=== PATIENT | female | born 1990 | race African-American/Black ===

== ENCOUNTER 2022-09-15 12:11 | Emergency (ER) | payer MEDICARE ==
[~2022-09-15] VITALS: Ht 170.2 cm; Wt 120.0 kg
[2022-09-15 12:47] LABS: BASO% 0.6 % (0-3); EOS% 1.8 % (0-8); HEMATOCRIT 37.8 % (37.0-47.0); IMMATURE GRANULOCYTES 0.2 % (0.0-5.0); LYMPH% 28.1 % (15-41); MEAN CELL VOLUME 78.3 fL CALC (80.0-100.0); MEAN CORPUSCULAR HGB 24.8 pG CALC (26.0-32.0); MEAN CORPUSCULAR HGB CONC 31.7 g/dL CAL (32.0-36.0); MONO% 8.8 % (2-13); NEUT# 3.3 thou/uL (2.00-7.15); NEUT% 60.5 % (42-76); RED BLOOD COUNT 4.83 mill/uL (4.20-5.60); RED CELL DISTRI WIDTH 14.1 % (11.5-15.5)
[2022-09-15 13:05] LABS: ALBUMIN 4.3 g/dL (3.2-5.0); ALKALINE PHOSPHATASE 69 u/l (38-126); ANION GAP 8 (6-22 (CALC)); BILIRUBIN, TOTAL 0.1 mg/dL (0.02-1.3); BUN 12 mg/dL (7-17); BUN/CREATININE RATIO 14 (12-20 (CALC)); CARBON DIOXIDE 29 mmol/l (22-30); CHLORIDE 105 mmol/l (95-108); CREATININE 0.9 mg/dL (0.5-1.0); GFR FOR AFR.AMER. > 60 ML/MIN (>=60 (CALC)); GFR OTHER RACES > 60 ML/MIN (>=60 (CALC)); LIPASE 37 u/l (23-300); POTASSIUM 3.6 mmol/l (3.5-5.1); SGOT/AST 25 u/l (14-36); SODIUM 139 mmol/l (137-146); TOTAL PROTEIN 7.4 g/dL (6.3-8.2)
[2022-09-15 13:42] LABS: URINE BILIRUBIN - DIPSTICK NEGATIVE (NEGATIVE); URINE BLOOD DIPSTICK NEGATIVE (NEGATIVE); URINE COLOR YELLOW; URINE GLUCOSE - DIPSTICK NEGATIVE (NEGATIVE); URINE KETONE NEGATIVE (NEGATIVE); URINE LEUK ESTERASE NEGATIVE (NEGATIVE); URINE PROTEIN - DIPSTICK NEGATIVE (NEG-TRACE); URINE SPECIFIC GRAVITY 1.025; URINE UROBILINOGEN - DIPSTICK 0.2 E.U./dL (0.2)
[2022-09-15 13:46] LABS: URINE NITRITE - DIPSTICK NEGATIVE (Negative)
[2022-09-15] MEDS ORDERED: METRONIDAZOLE500 MG PO (14:20)
[2022-09-15] MEDS ORDERED: ISENTRESS400 MG PO (15:15)
[2022-09-15] MEDS ORDERED: COMBIVIR 1501 COMBO PO (15:15)
== END 2022-09-15 16:17 | disposition home or self-care (01) ==
LOC: ED 12:11
PROVIDERS: Family Medicine
DX: T74.21XA Adult sexual abuse, confirmed, initial encounter (principal); R10.2 Pelvic and perineal pain; E66.01 Morbid (severe) obesity due to excess calories

== ENCOUNTER 2023-02-24 14:38 | Emergency (ER) | payer MEDICARE ==
[~2023-02-24] VITALS: Ht 170.2 cm; Wt 142.0 kg
[2023-02-24] VITALS (12 sets, daily range): BP systolic 97–139; BP diastolic 56–91
[~2023-02-24 14:38] MED LIST: COMBIVIR 1501 COMBO PO; ISENTRESS400 MG PO; METRONIDAZOLE500 MG PO
[2023-02-24 15:08] LABS: BASO% 0.5 % (0-3); EOS% 3.3 % (0-8); HEMATOCRIT 37.7 % (37.0-47.0); HEMOGLOBIN 11.7 g/dl (12.0-16.0); IMMATURE GRANULOCYTES 0.2 % (0.0-5.0); LYMPH% 27.6 % (15-41); MEAN CELL VOLUME 77.9 fL CALC (80.0-100.0); MEAN CORPUSCULAR HGB 24.2 pG CALC (26.0-32.0); MONO% 7.5 % (2-13); NEUT# 3.34 thou/uL (2.00-7.15); NEUT% 60.9 % (42-76); RED BLOOD COUNT 4.84 mill/uL (4.20-5.60); RED CELL DISTRI WIDTH 16.1 % (11.5-15.5)
[2023-02-24 15:16] LABS: ALBUMIN 3.8 g/dL (3.2-5.0); ALKALINE PHOSPHATASE 72 u/l (38-126); BUN 9 mg/dL (7-17); BUN/CREATININE RATIO 11 (12-20 (CALC)); CHLORIDE 107 mmol/l (95-108); CREATININE 0.8 mg/dL (0.5-1.0); GFR FOR AFR.AMER. > 60 ML/MIN (>=60 (CALC)); GFR OTHER RACES > 60 ML/MIN (>=60 (CALC)); POTASSIUM 3.9 mmol/l (3.5-5.1); SGOT/AST 22 u/l (14-36); SODIUM 137 mmol/l (137-146)
[2023-02-24 15:18] LABS: ANION GAP 12 (6-22 (CALC)); BILIRUBIN, TOTAL 0.2 mg/dL (0.02-1.3); CARBON DIOXIDE 22 mmol/l (22-30)
== END 2023-02-24 17:28 | disposition home or self-care (01) ==
LOC: ED 14:38
PROVIDERS: Family Medicine
DX: R51.9 Headache, unspecified (principal); F20.9 Schizophrenia, unspecified; E66.9 Obesity, unspecified

== ENCOUNTER 2023-02-27 05:15 | Emergency (ER) | payer MEDICARE ==
[2023-02-27] VITALS (10 sets, daily range): BP systolic 117–138; BP diastolic 70–94
[~2023-02-27] VITALS: Ht 170.2 cm; Wt 143.0 kg
[2023-02-27] MEDS ORDERED: INVEGA SUS1 IM (06:04)
[2023-02-27] MEDS ORDERED: FIORICET PO (06:05)
== END 2023-02-27 07:30 | disposition home or self-care (01) ==
LOC: ED 05:15
DX: R51.9 Headache, unspecified (principal); F20.9 Schizophrenia, unspecified; F17.200 Nicotine dependence, unspecified, uncomplicated